=== PATIENT | female | born 1970 | race Caucasian/White ===

== ENCOUNTER 2022-11-25 18:56 | Emergency (ER) | payer MEDICAID, SELFPAY ==
--- NOTE | 2022-11-25 19:05 | ED_ITS ---
HPI - Abdominal Pain General Time Seen by Provider: 19:05 Date Seen: 11/25/22 Chief Complaint: Abdominal Pain Stated Complaint: Abdominal Pain,has GERD and hernias Time Seen by Provider: 11/25/22 19:03 Source: patient and RN notes reviewed Mode of arrival: ambulatory Limitations: no limitations History of Present Illness HPI narrative: Cheryl is a 51-year-old female with known history of hiatal hernia recent endoscopy with possible [place] kidney stones remote history of happened this itis with peritonitis who comes to the emergency room with abdominal pain. Patient notes the onset of abdominal pain earlier today. She describes this 1st in the left lower quadrant with radiation into her back. She states the pain was so much that she could lay on that side. She has been experiencing intermittent episodes of hot and cold but has had no overt fever. Throughout the afternoon the pain has now in her mid and right side of her abdomen as well. She notes that she actually called EMS because the pain was so bad but then decided not to come into the emergency room until this evening. She states that she has noticed that her stool seem to be dining room hostess in color but otherwise she has not had any diarrhea or blood in her stool. She notes that her abdomen is ?rock hard? and this is unusual for her. When asked about urination she states that she does have some burning in her pubic area but it does not necessarily hurt to urinate. She has been nauseated without any vomiting. She has not taken anything for pain at this time. Movement sometimes increases her discomfort. Related Data Home Medications Medication Instructions Recorded Confirmed amlodipine 10 mg tablet mg 11/25/22 buspirone 15 mg tablet mg 11/25/22 escitalopram oxalate 20 mg tablet mg 11/25/22 esomeprazole magnesium 20 mg mg 11/25/22 capsule,delayed release famotidine 40 mg tablet mg 11/25/22 lorazepam 0.5 mg tablet mg 11/25/22 omeprazole 40 mg capsule,delayed mg 11/25/22 release sucralfate 1 gram tablet 11/25/22 Previous Rx's Medication Instructions Recorded hydrocodone 5 mg-acetaminophen 325 1 tab PO Q4H #20 tabs 11/25/22 mg tablet tamsulosin 0.4 mg capsule (Flomax) 0.4 mg PO DAILY #14 caps 11/25/22 Allergies Allergy/AdvReac Type Severity Reaction Status Date / Time carbamazepine AdvReac Verified 11/25/22 19:54 Penicillins AdvReac Verified 11/25/22 19:54 Review of Systems Status of ROS Reports: 10 or more systems reviewed and unremarkable except as noted in History and below Const Denies: fever PFSH PFSH Medical History Aneurysm of internal carotid artery Depression Fibromuscular dysplasia of carotid artery CARLOS (generalized anxiety disorder) Gastritis HTN (hypertension) Kidney stone Surgical History History of appendectomy Social History Smoking Status: Never smoker How often do you have a drink containing alcohol: never AUDIT-C Alcohol total score: 0 Non-prescribed substance use: denies use Exam Narrative: Exam Narrative: Cheryl is alert and oriented. She is accompanied by her daughter. Eyes are clear. No icterus. Neck is supple. Heart with regular rate and rhythm. Lungs are clear to auscultation. Abdomen is firm. There are no bulging masses at the umbilicus or in the groin. She does have bowel sounds occasionally higher pitched. She has tenderness noted in the left lateral, mid and right lower quadrant. No rebound tenderness is noted. Moving all extremities. Const: Vital Signs, click to edit/add: Vital Signs - 24 hr 11/25/22 19:07 Temperature 98.1 F Pulse Rate [Left P ulse Oximeter] 89 Respiratory Rate 16 Blood Pressure [Le ft Upper Arm] 141/92 H Pulse Oximetry 95 Oxygen Delivery Me thod Room Air Documenting provider has reviewed patient's vital signs: yes Course Course Hospital Course: At this time differential diagnosis includes but is not limited to small-bowel obstruction, colitis, ileus, diverticulitis, kidney stone, urinary tract infection, pyelonephritis, constipation. Will have patient undergo CT with IV contrast of the abdomen and pelvis. Will also get laboratory values to include CBC, comprehensive panel, urinalysis, CRP. An IV will be established and patient will be given 1 L of normal saline, Toradol 15 mg IV, Zofran 4 mg IV. Reevaluation(s) Reevaluation #1: Labs reassuring with a white count of 9.91 CRP in minimally elevated at 1.1 creatinine within normal limits at 0.7 and lactate normal as well. Urinalysis without evidence of UTI does show 5-10 rbc's. Vital Signs Vital signs: Initial Vital Signs Temperature 98.1 F 11/25/22 19:07 Temperature Source Temporal Artery Scan 11/25/22 19:07 Pulse Rate 89 11/25/22 19:07 Pulse Rhythm 11/25/22 19:07 Respiratory Rate 16 11/25/22 19:07 Blood Pressure 141/92 H 11/25/22 19:07 Blood Pressure Mean 108 11/25/22 19:07 Blood Pressure Position Sitting 11/25/22 19:07 Pulse Oximetry 95 11/25/22 19:07 Oxygen Delivery Method 11/25/22 19:07 Vital Signs Temperature 98.1 F 11/25/22 19:07 Pulse Rate 89 11/25/22 19:07 Respiratory Rate 16 11/25/22 19:07 Blood Pressure 141/92 H 11/25/22 19:07 Pulse Oximetry 95 11/25/22 19:07 Oxygen Delivery Method 11/25/22 19:07 Temperature 98.1 F 11/25/22 19:07 Pulse Rate 89 11/25/22 19:07 Respiratory Rate 16 11/25/22 19:07 Blood Pressure 141/92 H 11/25/22 19:07 Pulse Oximetry 95 11/25/22 19:07 Oxygen Delivery Method 11/25/22 19:07 MDM - Abdominal Pain MDM Narrative Medical decision making narrative: 1. Left-sided ureteral colic with severe hydronephrosis-I did speak with Urology regarding this patient as I think that patient has a very small chance of passing this stone. My concern was also of the severe hydronephrosis. I am told that unless patient has a retractable pain or infection they would still elect to wait a few weeks to see if this stone would pass. I did explain this to patient. I would ask that we provide patient with a copy of her CT. She will follow-up with her primary MD in order to expedite appointment with Urology. Unfortunately, she has had a 7.5 mm stone in the past and had to undergo lithotripsy. For pain she is supposed to show I away from NSAIDs. She did receive Toradol and objectively seems improved but she states that she is only minimally improved. We will give her a dose of morphine 2 mg prior to her departure. She does note that the nausea is much better. At home, would have her use Colman 5/325 1-2 tabs p.o. q.4-6 hours p.r.n. pain 6 tablets are given via [employer] with additional 20 tablets sent to her pharmacy. Finally, Zofran 4 mg ODT Q 6-8 hours p.r.n. 10. Given via instant [facility]. Patient tonight also given Flomax 0.4 mg p.o.. Two weeks with daily dosing of same medication sent to her pharmacy. 2. Disposition-home with her daughter. Monitor for infection and return for fever, vomiting, worsening pain and as needed. Recommend use of stool softener such as MiraLax. This was discussed with Cheryl and her daughter. Note incidental finding on CT was id L2-3 disc protrusion causing moderate stenosis of the lumbar spine. Patient denies any history of leg weakness or pain. She states that she is quite active in climbs at work. No evidence of claudication. I did review this with the patient. Lab Data Attestation: I reviewed the patient's lab results. Labs: Lab Results 11/25/22 11/25/22 11/25/22 Range/Units 19:30 19:40 19:40 WBC 9.91 (4.50-11.00) K/uL RBC 4.20 (4.00-5.20) m/uL Hgb 12.9 (12.0-16.0) gm/dL Hct 38.2 (33.0-51.0) % MCV 91 (80-100) fL MCH 31 (26-34) pg MCHC 34 (32-36) gm/dL RDW Coeff of Jewels 13.0 (11.5-15.5) % Plt Count 263 (140-440) K/uL Neut % (Auto) 71.4 (42.0-72.0) % Lymph % (Auto) 17.5 L (20-44) % [place] % (Auto) 9.6 (0.0-11.0) % Eos % (Auto) 1.1 (0.0-7.0) % Baso % (Auto) 0.3 (0.0-3.0) % Neut # (Auto) 7.08 H (1.7-7.0) K/uL Lymph # (Auto) 1.70 (0.90-2.90) K/uL [place] # (Auto) 1.00 H (0.00-0.90) K/UL Eos # (Auto) 0.11 (0.00-0.50) K/uL Baso # (Auto) 0.03 (0.00-0.30) K/uL Sodium 141 (135-149) mmol/L Potassium 3.6 (3.6-5.1) mmol/L Chloride 107 (96-114) mmol/L Carbon Dioxide 26 (20-32) mmol/L BUN 11 (5-24) mg/dL Creatinine 0.7 (0.5-1.5) mg/dL Estimated GFR 106 ml/min Glucose 109 (60-115) mg/dL Lactate (0.5-1.9) mmol/L Calcium 9.4 (8.4-10.6) mg/dL Total Bilirubin 0.6 (0.1-1.5) mg/dL AST 26 (12-35) U/L ALT 26 (4-35) U/L Alkaline Phosphatase 121 (40-150) U/L C-Reactive Protein 1.1 H (0.5-1.0) mg/dL Total Protein 8.2 (6.0-8.3) g/dL Albumin 4.5 (3.3-5.0) g/dL Amylase 66 (18-89) U/L Lipase 56 (23-300) U/L Urine Color Yellow (Yellow) Urine Appearance Clear (Clear) Urine pH 6.0 (5.0-8.5) Ur Specific [place] 1.010 (1.000-1.030) Urine Protein Negative (Negative) Urine Glucose (UA) Negative (Negative) Urine Ketones Negative (Negative) Urine Blood 2+ A (Negative) Urine Nitrite Negative (Negative) Urine Bilirubin Negative (Negative) Urine Urobilinogen 0.2 (0.2-1.0) Ur Leukocyte Esterase Trace A (Negative) Urine RBC 5-10 A (0-2) Urine WBC 2-5 (0-5) Ur Squamous Epith Cells Few (None-Few) Urine Bacteria None (None) 11/25/22 Range/Units 19:40 WBC (4.50-11.00) K/uL RBC (4.00-5.20) m/uL Hgb (12.0-16.0) gm/dL Hct (33.0-51.0) % MCV (80-100) fL MCH (26-34) pg MCHC (32-36) gm/dL RDW Coeff of Jewels (11.5-15.5) % Plt Count (140-440) K/uL Neut % (Auto) (42.0-72.0) % Lymph % (Auto) (20-44) % [place] % (Auto) (0.0-11.0) % Eos % (Auto) (0.0-7.0) % Baso % (Auto) (0.0-3.0) % Neut # (Auto) (1.7-7.0) K/uL Lymph # (Auto) (0.90-2.90) K/uL [place] # (Auto) (0.00-0.90) K/UL Eos # (Auto) (0.00-0.50) K/uL Baso # (Auto) (0.00-0.30) K/uL Sodium (135-149) mmol/L Potassium (3.6-5.1) mmol/L Chloride (96-114) mmol/L Carbon Dioxide (20-32) mmol/L BUN (5-24) mg/dL Creatinine (0.5-1.5) mg/dL Estimated GFR ml/min Glucose (60-115) mg/dL Lactate 1.0 (0.5-1.9) mmol/L Calcium (8.4-10.6) mg/dL Total Bilirubin (0.1-1.5) mg/dL AST (12-35) U/L ALT (4-35) U/L Alkaline Phosphatase (40-150) U/L C-Reactive Protein (0.5-1.0) mg/dL Total Protein (6.0-8.3) g/dL Albumin (3.3-5.0) g/dL Amylase (18-89) U/L Lipase (23-300) U/L Urine Color (Yellow) Urine Appearance (Clear) Urine pH (5.0-8.5) Ur Specific [place] (1.000-1.030) Urine Protein (Negative) Urine Glucose (UA) (Negative) Urine Ketones (Negative) Urine Blood (Negative) Urine Nitrite (Negative) Urine Bilirubin (Negative) Urine Urobilinogen (0.2-1.0) Ur Leukocyte Esterase (Negative) Urine RBC (0-2) Urine WBC (0-5) Ur Squamous Epith Cells (None-Few) Urine Bacteria (None) Imaging Data CT scan - abdomen: Attestation: I have reviewed the pertinent imaging results. Radiologist's impression: ?Unremarkable. Normal in size and attenuation. No suspicious masses. Gallbladder and bile ducts: Unremarkable. No stones or inflammation. No biliary dilatation. Pancreas: Unremarkable. No mass or inflammation. Spleen: Unremarkable. Normal in size. No masses. Adrenal glands: Unremarkable. No nodules. Kidneys and ureters: Normal right kidney and ureter. 8 mm stone in the left mid ureter with associated moderate to severe proximal hydroureteronephrosis. The suspicious mass. GI tract: Small hiatal hernia. Normal in caliber. No sign of mass or inflammation. The appendix is not clearly visualized. Vasculature: Abdominal aorta is normal in caliber. Mesenteric arteries are patent. Lymph nodes: No lymphadenopathy. Peritoneum/Abdominal Wall: Unremarkable. No sign of mass or infiltration. No free air or significant free fluid. Pelvis: Unremarkable. Bones: Posterior longitudinal ligament calcification versus calcification of a L3-4 disc protrusion causing moderate spinal canal stenosis. IMPRESSION: 8 mm stone in the left mid ureter with associated moderate to severe proximal hydroureteronephrosis. Posterior longitudinal ligament calcification versus calcification of a L3-4 disc protrusion causing moderate spinal canal stenosis. Recommend correlation for neurogenic claudication. Consider routine outpatient lumbar spine MRI if clinical concern persists. Discharge Plan Discharge Clinical Impression: Acquired hydronephrosis due to obstruction of ureter, Abdominal pain, Left ureteral stone Patient Disposition: Home, Self-Care Condition: Improved Additional Instructions: Suggest follow-up with primary MD so that you are able to see Urology. For pain: Colman which is also known as hydrocodone and Tylenol as needed for discomfort. I did send additional prescription to your pharmacy. A small amount will be provided to you through [employer] tonight. Secondly, Zofran as needed for nausea. Ten tablets were provided for you through [employer]. Flomax is a smooth muscle relaxer that we will use to hopefully increase the chances of passing this large stone. Your 1st dose is given tonight and a further prescription is sent to the pharmacy. Seek medical attention or return to the emergency room for fever, worsening symptoms and as needed. Pain medications such as narcotics including hydrocodone should not be used with a benzodiazepine such as Ativan, lorazepam or Valium. Prescriptions: New tamsulosin [Flomax] 0.4 mg capsule 0.4 mg PO DAILY Qty: 14 1RF hydrocodone-acetaminophen 5-325 mg tablet 1 tab PO Q4H Qty: 20 0RF No Action sucralfate 1 gram tablet Label Comments: TAKE 1 TABLET BY MOUTH 4 TIMES DAILY ON AN EMPTY STOMACH 1 HOUR BEFORE MEALS AND AT BEDTIME famotidine 40 mg tablet Label Comments: TAKE 1 TABLET BY MOUTH TWICE DAILY omeprazole 40 mg capsule,delayed release(DR/EC) Label Comments: TAKE 1 CAPSULE BY MOUTH TWICE DAILY lorazepam 0.5 mg tablet Label Comments: TAKE 1 TABLET BY MOUTH TWICE DAILY NEEDED FOR ANXIETY amlodipine 10 mg tablet Label Comments: TAKE 1 TABLET BY MOUTH ONCE DAILY buspirone 15 mg tablet Label Comments: TAKE 1 TABLET BY MOUTH TWICE DAILY esomeprazole magnesium 20 mg capsule,delayed release(DR/EC) Label Comments: TAKE 1 CAPSULE BY MOUTH TWICE DAILY . 30 MINUTES TO 1 HOUR BEFORE A MEAL SWALLOWING WHOLE. DO NOT CRUSH OR CHEW GRANULES. escitalopram oxalate 20 mg tablet Label Comments: TAKE 1 TABLET BY MOUTH IN THE EVENING Follow Up/Referrals: Provider,Not a Local [Primary Care Provider] - Stand Alone Forms: [employer] Info Instructions
[2022-11-25 19:07] VITALS: BP 141/92; PULSE 89; RESP 16; TEMP 36.7; O2SAT 95
--- NOTE | 2022-11-25 19:23 | CRLHL7_ITS ---
For Patients: As a result of the Century Cures Act, medical imaging exams and procedure reports are released immediately into your electronic medical record. You may view this report before your referring provider. If you have questions, please contact your health care provider. INDICATION: ABD PAIN, W/ DISTENSION TECHNIQUE: CT abdomen and pelvis acquired with 100 cc Omnipaque 350 IV contrast. COMPARISON: None. FINDINGS: Lower chest: Unremarkable. Liver: Unremarkable. Normal in size and attenuation. No suspicious masses. Gallbladder and bile ducts: Unremarkable. No stones or inflammation. No biliary dilatation. Pancreas: Unremarkable. No mass or inflammation. Spleen: Unremarkable. Normal in size. No masses. Adrenal glands: Unremarkable. No nodules. Kidneys and ureters: Normal right kidney and ureter. 8 mm stone in the left mid ureter with associated moderate to severe proximal hydroureteronephrosis. The suspicious mass. GI tract: Small hiatal hernia. Normal in caliber. No sign of mass or inflammation. The appendix is not clearly visualized. Vasculature: Abdominal aorta is normal in caliber. Mesenteric arteries are patent. Lymph nodes: No lymphadenopathy. Peritoneum/Abdominal Wall: Unremarkable. No sign of mass or infiltration. No free air or significant free fluid. Pelvis: Unremarkable. Bones: Posterior longitudinal ligament calcification versus calcification of a L3-4 disc protrusion causing moderate spinal canal stenosis. IMPRESSION: 8 mm stone in the left mid ureter with associated moderate to severe proximal hydroureteronephrosis. Posterior longitudinal ligament calcification versus calcification of a L3-4 disc protrusion causing moderate spinal canal stenosis. Recommend correlation for neurogenic claudication. Consider routine outpatient lumbar spine MRI if clinical concern persists. Please note that all CT scans at this facility use dose modulation, iterative reconstruction, and/or weight-based dosing when appropriate to reduce radiation dose to as low as reasonably achievable. Dictated by Vijay Zuluaga MD @ 11/25/2022 8:21:21 PM (Electronically Signed)
[2022-11-25 19:37] LABS: Appearance Urine Clear (Clear); Bilirubin Urine Negative (Negative); Blood Urine 2+ (Negative); Color Urine Yellow (Yellow); Glucose Urine Negative (Negative); Ketones Urine Negative (Negative); Leukocyte Esterase Urine Trace (Negative); Nitrite Urine Negative (Negative); Protein Urine Negative (Negative); Urobilinogen Urine 0.2 (0.2-1.0)
[2022-11-25 19:46] LABS: Squamous Epithelial Cell Urine Few (None-Few)
[2022-11-25] MEDS: KETOROLAC 15 MG/ML inj IVP (19:46)
[2022-11-25] MEDS: 0.9 % SODIUM CHLORIDE 1000 ml 1,000 ML IV (19:47)
[2022-11-25] MEDS: ONDANSETRON 2 MG/ML inj 4 MG IVP (19:47)
[2022-11-25 19:52] LABS: Basophils Absolute Auto 0.03 K/uL (0.00-0.30); Basophils Percent Auto 0.3 % (0.0-3.0); Eosinophils Absolute Auto 0.11 K/uL (0.00-0.50); Eosinophils Percent Auto 1.1 % (0.0-7.0); Hematocrit 38.2 % (33.0-51.0); Hemoglobin* 12.9 gm/dL (12.0-16.0); Immature Granulocytes Abs Auto 0.01 K/uL (0.00-0.30); Immature Granulocytes Pct Auto 0.1 %; Lymphocytes Percent Auto 17.5 % (20-44); Mean Corpuscular HGB Conc 34 gm/dL (32-36); Mean Corpuscular Hemoglobin 31 pg (26-34); Mean Corpuscular Volume 91 fL (80-100); Monocytes Percent Auto 9.6 % (0.0-11.0); Neutrophils Absolute Auto 7.08 K/uL (1.7-7.0); Neutrophils Percent Auto 71.4 % (42.0-72.0); Platelet Count* 263 K/uL (140-440); White Blood Count* 9.91 K/uL (4.50-11.00)
[2022-11-25 20:02] LABS: Slide Review Reflex No
[2022-11-25 20:11] LABS: Albumin* 4.5 g/dL (3.3-5.0); Chloride* 107 mmol/L (96-114)
[2022-11-25 20:12] LABS: Potassium* 3.6 mmol/L (3.6-5.1); Sodium* 141 mmol/L (135-149)
[2022-11-25 20:14] LABS: Amylase* 66 U/L (18-89)
[2022-11-25 20:15] LABS: Alanine Aminotransferase* 26 U/L (4-35); Alkaline Phosphatase* 121 U/L (40-150); Aspartate Amino Transferase* 26 U/L (12-35); Bilirubin Total* 0.6 mg/dL (0.1-1.5); Blood Urea Nitrogen* 11 mg/dL (5-24); Calcium* 9.4 mg/dL (8.4-10.6); Carbon Dioxide* 26 mmol/L (20-32); Creatinine* 0.7 mg/dL (0.5-1.5); Estimated Glomerular Filt Rate 106 ml/min; Glucose* 109 mg/dL (60-115); Lipase* 56 U/L (23-300); Total Protein* 8.2 g/dL (6.0-8.3)
[2022-11-25 20:18] LABS: C Reactive Protein* 1.1 mg/dL (0.5-1.0)
[2022-11-25] MEDS: MORPHINE 2 MG/ML inj IVP (20:50)
[2022-11-25] MEDS: TAMSULOSIN HCL 0.4 MG CAPSULE PO (20:50)
[2022-11-25 20:55] VITALS: BP 138/81; PULSE 79; RESP 16
--- NOTE | 2022-11-25 21:13 | ED.NURSE ---
radiology CD left at ED front tender, pt called to let her know, pt said she will come get it this week when weather is better.
== END 2022-11-25 20:56 | disposition home or self-care (01) ==
PROVIDERS: Emergency Provider Family Medicine
DX: N13.2 Hydronephrosis with renal and ureteral calculous obstruction (principal); M48.00 Spinal stenosis, site unspecified
CPT/HCPCS: 36415; 74177; 80053; 81001; 82150; 83605; 83690; 85025; 86140; 96360; 96374; 96375; 99284; 99285; A9270; J1885; J2270; J2405; J7030; Q9967